=== PATIENT | male | born 1960 | race Two or more races ===

== ENCOUNTER 2020-07-15 20:24 | Inpatient (IN) | payer MEDICARE, OTHER ==
[~2020-07-15] VITALS: Ht 182.9 cm; Wt 82.6 kg
[2020-07-15] MEDS ORDERED: ACETAMINOPHEN/CODEINE 300-30 MG TABLET PO ONE (21:00)
[2020-07-15] MEDS ORDERED: ACETAMINOPHEN/CODEINE 300-30 MG TABLET ONE (21:11)
--- NOTE | 2020-07-15 21:49 | NUR ---
Patient will be going to Room 140. Report Given. COVID -.
[2020-07-15] MEDS ORDERED: CLONIDINE HCL 0.1 MG TABLET ONE (21:59)
[2020-07-15] MEDS ORDERED: CLONIDINE HCL 0.1 MG TABLET PO ONE (22:00)
[2020-07-15 22:30] VITALS: BP 164/111
[2020-07-15 22:45] VITALS: BP 168/93
[2020-07-15] MEDS ORDERED: MAG HYDROX/AL HYDROX/SIMETH 30 ML LIQUID UDC PO PRN (22:45)
[2020-07-15] MEDS ORDERED: CLONAZEPAM 0.5 MG TABLET PO PRN (22:45)
[2020-07-15] MEDS ORDERED: TEMAZEPAM 7.5 MG CAPSULE PO PRN (22:45)
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
[2020-07-15] MEDS: CLONIDINE HCL 0.1 MG TABLET PO PRN (23:45)
[2020-07-16] MEDS: ACETAMINOPHEN 325 MG TABLET PO PRN ×2 (04:41→14:11)
--- NOTE | 2020-07-16 06:09 | NUR ---
Patients b/p on admission, 183/93. Clonidine PRN was given. Recheck of b/p is 137/85. Patient slept 5.30 last night. Woke up anxious early this am. Reassurance provided along with medication for anxiety. Continuing to monitor for paranoia, anxiety, VS and safety. No acute issues at this time.
[2020-07-16 07:25] LABS: BILIRUBIN,TOTAL 0.7 mg/dL (0.2-1.0); CREATININE 1.1 mg/dL (0.6-1.3); POTASSIUM 3.2 mmol/L (3.5-5.1); TOTAL PROTEIN, SERUM 6.1 g/dL (6.4-8.2)
[2020-07-16 07:30] VITALS: BP 150/80
[2020-07-16] MEDS ORDERED: PNEUMOCOCCAL 23-VAL P-SAC VAC 0.5 ML VIAL IM ONE (09:00)
[2020-07-16] MEDS ORDERED: POTASSIUM CHLORIDE 20 MEQ TAB.PRT.SR PO ONE (09:45)
--- NOTE | 2020-07-16 11:11 | NUR ---
NATASHA Initial Discharge Plan: [place] [address] ([phone]). Patient would like a new board and care facility placement. Patient's daughter, Rebecca Bedoya ([phone]) is involved in the patient's care and would like an alternate board and care facility for the patient. NATASHA will continue to work with patient, family, and MD to ensure as safe and proper discharge plan.
--- NOTE | 2020-07-16 11:21 | NUR ---
SW Family Contact: SW spoke with patient's daughter, Rebecca Bedoya ([phone]) who is involved in the patient's care and discussed treatment and discharge plan. Rebecca stated that she does not want the patient to return to his current board and care. SW advised that we can search for an alternate board and care placement for the patient. Rebecca requested for a placement out near her city near [place], [place] and farther out. This SW advised that we do not have resources beyond the [facility] area. Rebecca stated "you are a social media campaign manager it is your job to find him a facility! you cannot throw him on the streets". This SW educated Rebecca that we do not "throw patients on the street". This SW stated again that we can find the patient an alternate placement however it would be in the [place] area. SW informed Rebecca that she is more than welcome to look into placements in her area and this SW will coordinate with them if they can accept the patient. Rebecca states "it is not my job to do that". This SW requested Rebecca to look into placement of her choice over the weekend and this SW will touch bases with her on Sunday for follow up discharge planing discussion. This SW will give Rebecca placement options that are accepting with patient's income.
--- NOTE | 2020-07-16 11:32 | NUR ---
Firearms Report: Industrial Relations Worker completed and submitted a [employer] firearms report for 5150 grave disability certifications. A copy of report has been placed in patient chart.
--- NOTE | 2020-07-16 11:32 | NUR ---
NATASHA Formula Mixer: NATASHA spoke with Glenis ([phone]) key account coordinator for [facility]. NATASHA requested to find a placement for this patient. Glenis will look into it and call this SW with potential placements.
[2020-07-16] MEDS ORDERED: METF-442 PO (13:56)
[2020-07-16] MEDS ORDERED: METF-495 PO (13:56)
--- NOTE | 2020-07-16 14:11 | NUR ---
Pt asked for Tylenol PRN for pain but refused to take it when this nurse offered it at bedside. He said he wanted "Tylenol with codeine" because "regular Tylenol doesn't work". Nurse explained MD order but insisted on his preference and refused said medication.
[2020-07-16 16:27] VITALS: BP 178/104
[2020-07-16] MEDS: CLONIDINE HCL 0.1 MG TABLET PO PRN ×2 (16:46→19:54)
--- NOTE | 2020-07-16 16:46 | NUR ---
Pt's BP reads 170/100. Catapres 0.1mg offered to pt for increased BP. Pt refused, saying he doesn't need it and that he only wants Oxycontin. Teaching re: indication of the medication done, pt still refused.
[2020-07-16] MEDS ORDERED: hydrALAZINE HCL 10 MG TABLET PO PRN (17:15)
--- NOTE | 2020-07-16 18:27 | NUR ---
served a copy of his 5250 hold, patient throw the copy on the floor, patient remain isolative and withdrawn with unpredictable behavior
[2020-07-16] MEDS: HYDROCODONE/APAP 5-325MG TABLET PO PRN (20:18)
[2020-07-16 20:24] VITALS: BP 167/101
[2020-07-16] MEDS: risperiDONE 1 MG TABLET PO SCH (20:55)
[2020-07-16] MEDS: METOPROLOL TARTRATE 25 MG TABLET PO SCH (20:55)
[2020-07-16 21:37] VITALS: BP 137/89
[2020-07-16] MEDS: TEMAZEPAM 15 MG CAPSULE PO PRN (23:01)
--- NOTE | 2020-07-17 06:11 | NUR ---
GPS: Remain calm and cooperative. v/s wnl. slept 7 hrs after sleeping meds given. self care. resting in bed comfortably. continue plan of care.
[2020-07-17 07:30] VITALS: BP 142/85
--- NOTE | 2020-07-17 07:30 | NUR ---
received patient on bed, calm cooperative, denies SI and HI, compliant with medication,on monitoring for q15 for safety no sign of distress .verbalizes of pain, patient asked for his pain medication, pain meds given as ordered will continue monitor
[2020-07-17] MEDS: risperiDONE 1 MG TABLET PO SCH ×2 (08:30→20:23)
[2020-07-17] MEDS: METFORMIN HCL 500 MG TABLET PO SCH ×2 (08:30→16:44)
[2020-07-17] MEDS: LOSARTAN POTASSIUM 25 MG TABLET PO SCH (08:30)
[2020-07-17] MEDS: DIVALPROEX 250 MG TABLET.DR PO SCH ×3 (08:30→16:44)
[2020-07-17] MEDS: METOPROLOL TARTRATE 25 MG TABLET PO SCH ×2 (08:31→20:23)
[2020-07-17] MEDS: HYDROCODONE/APAP 5-325MG TABLET PO PRN ×2 (08:36→17:08)
[2020-07-17] MEDS ORDERED: hydrALAZINE HCL 10 MG TABLET PO PRN (09:00)
[2020-07-17] MEDS: ACETAMINOPHEN 325 MG TABLET PO PRN (12:26)
[2020-07-17 15:59] VITALS: BP 122/71
--- NOTE | 2020-07-17 17:23 | NUR ---
patient been calm, cooperative, patient isolative withdrawn, patient requested for pain medication, on moniotring for q15 no sign of distress
[2020-07-17 20:39] VITALS: BP 143/85
[2020-07-17] MEDS: TEMAZEPAM 15 MG CAPSULE PO PRN (21:25)
--- NOTE | 2020-07-18 05:48 | NUR ---
slept 7.45 hrs through the night.
[2020-07-18 07:04] LABS: BASOPHILS # (AUTO) 0.1 K/uL (0.0-8.0); EOSINOPHILS # (AUTO) 0.2 K/uL (0.0-0.7); EOSINOPHILS % (AUTO) 3.5 % (0.0-7.0); HEMATOCRIT 44.3 % (36.7-47.1); HEMOGLOBIN 14.9 g/dL (12.5-16.3); LYMPHOCYTES # (AUTO) 1.4 K/uL (20.0-40.0); LYMPHOCYTES % (AUTO) 25.1 % (20.5-51.5); MEAN CORPUSCULAR HGB CONC 34 g/dL (32.5-36.3); MEAN CORPUSCULAR VOLUME 98.4 fL (73.0-96.2); MONOCYTES # (AUTO) 0.4 K/uL (2.0-10.0); MONOCYTES % (AUTO) 7.8 % (0.0-11.0); NEUTROPHILS # (AUTO) 3.5 K/uL (1.8-8.9); NEUTROPHILS % (AUTO) 62.6 % (38.5-71.5); PLATELET COUNT (AUTO) 135 K/uL (152-348); RED BLOOD CELL COUNT(AUTO) 4.51 MIL/uL (4.06-5.63); WHITE BLOOD COUNT (AUTO) 5.5 K/uL (3.6-10.2)
[2020-07-18 07:11] LABS: CREATININE 1.1 mg/dL (0.6-1.3); MAGNESIUM 2.1 mg/dL (1.8-2.4); PHOSPHOROUS 3.3 mg/dL (2.5-4.9); POTASSIUM 3.9 mmol/L (3.5-5.1)
[2020-07-18 08:00] VITALS: BP 160/89
[2020-07-18] MEDS: METFORMIN HCL 500 MG TABLET PO SCH ×2 (08:31→16:08)
[2020-07-18] MEDS: HYDROCODONE/APAP 5-325MG TABLET PO PRN ×2 (08:31→15:33)
[2020-07-18] MEDS: DIVALPROEX 250 MG TABLET.DR PO SCH ×3 (08:31→16:08)
[2020-07-18] MEDS: METOPROLOL TARTRATE 25 MG TABLET PO SCH ×2 (08:32→20:20)
[2020-07-18] MEDS: LOSARTAN POTASSIUM 25 MG TABLET PO SCH (08:32)
[2020-07-18] MEDS: risperiDONE 1 MG TABLET PO SCH ×2 (08:32→20:20)
[2020-07-18] MEDS: ACETAMINOPHEN 325 MG TABLET PO PRN (08:32)
[2020-07-18] MEDS: CIPROFLOXACIN 0.3% OPHT DROP 2.5 ML BOTTLE LEFTEYE SCH ×3 (13:15→20:21)
[2020-07-18 16:00] VITALS: BP 148/86
[2020-07-18 20:00] VITALS: BP 155/92
[2020-07-18] MEDS: LORAZEPAM 1 MG TABLET PO PRN (20:21)
[2020-07-19] MEDS: CIPROFLOXACIN 0.3% OPHT DROP 2.5 ML BOTTLE LEFTEYE SCH ×6 (00:03→20:26)
[2020-07-19] MEDS: TEMAZEPAM 15 MG CAPSULE PO PRN (00:20)
--- NOTE | 2020-07-19 06:56 | NUR ---
Received patient last night anxious . Medicated patient as prescribed and noted that patient still has delusional thinking. Patient was only up once during the night to ask for something to help him sleep. Sleep hours were 9.00. Continuing to monitor for safety, elevated blood pressure and labile behavior.
[2020-07-19 07:30] VITALS: BP 162/99
[2020-07-19 08:00] VITALS: BP 162/99
[2020-07-19] MEDS: METFORMIN HCL 500 MG TABLET PO SCH ×2 (08:45→16:30)
[2020-07-19] MEDS: risperiDONE 1 MG TABLET PO SCH ×2 (08:46→20:34)
[2020-07-19] MEDS: DIVALPROEX 250 MG TABLET.DR PO SCH ×3 (08:46→16:30)
[2020-07-19] MEDS: METOPROLOL TARTRATE 25 MG TABLET PO SCH ×2 (08:46→20:25)
[2020-07-19] MEDS: CLONIDINE HCL 0.1 MG TABLET PO PRN (08:46)
[2020-07-19] MEDS: LOSARTAN POTASSIUM 25 MG TABLET PO SCH (08:46)
[2020-07-19 12:53] VITALS: BP 143/78
--- NOTE | 2020-07-19 14:23 | NUR ---
SW Family Contact: SW spoke with patient's daughter, Rebecca Bedoya ([phone]) and discussed discharge planning. Rebecca informed this SW that she was able to visit some [facility] and Care facilities Glenis the lab coordinator this SW refereed her to last week. Rebecca stated she chose a facility of her liking for the patient to go to when ready for discharge.
[2020-07-19 16:00] VITALS: BP 150/88
[2020-07-19] MEDS: HYDROCODONE/APAP 5-325MG TABLET PO PRN (16:30)
[2020-07-19 20:00] VITALS: BP 137/88
[2020-07-19] MEDS: ACETAMINOPHEN 325 MG TABLET PO PRN (20:30)
[2020-07-20] MEDS: HYDROCODONE/APAP 5-325MG TABLET PO PRN ×3 (01:48→19:48)
[2020-07-20] MEDS: CIPROFLOXACIN 0.3% OPHT DROP 2.5 ML BOTTLE LEFTEYE SCH ×7 (01:48→20:04)
[2020-07-20 07:30] VITALS: BP 147/99
[2020-07-20] MEDS: LOSARTAN POTASSIUM 25 MG TABLET PO SCH (08:21)
[2020-07-20] MEDS: DIVALPROEX 250 MG TABLET.DR PO SCH ×3 (08:21→16:50)
[2020-07-20] MEDS: METFORMIN HCL 500 MG TABLET PO SCH ×2 (08:21→16:50)
[2020-07-20] MEDS: risperiDONE 1 MG TABLET PO SCH ×2 (08:21→20:04)
[2020-07-20] MEDS: METOPROLOL TARTRATE 25 MG TABLET PO SCH ×2 (08:22→20:04)
--- NOTE | 2020-07-20 10:31 | NUR ---
NATASHA PC Hearing: Patient had 5250 probable cause hearing today and it was upheld for grave disability.
[2020-07-20] MEDS: LISINOPRIL 5 MG TABLET PO SCH (12:58)
[2020-07-20 16:00] VITALS: BP 159/93
[2020-07-20 20:00] VITALS: BP 166/95
--- NOTE | 2020-07-20 21:20 | NUR ---
GPS: Pt.refused repeat b/p check at this time despite explanation of importance. Denies headaches nor any chest pains at this time. Will continue to monitor.
[2020-07-20] MEDS: TEMAZEPAM 15 MG CAPSULE PO PRN (23:36)
[2020-07-21] MEDS: CIPROFLOXACIN 0.3% OPHT DROP 2.5 ML BOTTLE LEFTEYE SCH ×7 (00:08→23:50)
--- NOTE | 2020-07-21 06:34 | NUR ---
GPS: Pt.slept for 5.30 last night. Atb.eye drops continues Q4 hrs.as ordered. Left eye remains swollen and reddened. Pain meds.given as ordered. Will continue to monitor.
[2020-07-21 07:30] VITALS: BP 155/97
[2020-07-21] MEDS: risperiDONE 1 MG TABLET PO SCH ×2 (09:43→20:33)
[2020-07-21] MEDS: DIVALPROEX 250 MG TABLET.DR PO SCH ×3 (09:43→16:35)
[2020-07-21] MEDS: METFORMIN HCL 500 MG TABLET PO SCH ×2 (09:43→16:35)
[2020-07-21] MEDS: METOPROLOL TARTRATE 25 MG TABLET PO SCH ×2 (09:43→20:33)
[2020-07-21] MEDS: LISINOPRIL 5 MG TABLET PO SCH ×2 (09:44→20:33)
[2020-07-21] MEDS: LOSARTAN POTASSIUM 25 MG TABLET PO SCH (09:44)
[2020-07-21] MEDS: HYDROCODONE/APAP 5-325MG TABLET PO PRN ×2 (10:09→17:43)
[2020-07-21 16:38] VITALS: BP 135/92
[2020-07-21 20:40] VITALS: BP 150/92
[2020-07-21] MEDS: TEMAZEPAM 15 MG CAPSULE PO PRN (22:47)
[2020-07-22] MEDS: CIPROFLOXACIN 0.3% OPHT DROP 2.5 ML BOTTLE LEFTEYE SCH ×6 (04:00→23:52)
[2020-07-22 07:30] VITALS: BP 141/88
[2020-07-22] MEDS: METFORMIN HCL 500 MG TABLET PO SCH ×2 (09:32→17:14)
[2020-07-22] MEDS: LOSARTAN POTASSIUM 25 MG TABLET PO SCH (09:32)
[2020-07-22] MEDS: risperiDONE 1 MG TABLET PO SCH (09:32)
[2020-07-22] MEDS: DIVALPROEX 250 MG TABLET.DR PO SCH ×3 (09:32→17:14)
[2020-07-22] MEDS: METOPROLOL TARTRATE 25 MG TABLET PO SCH ×2 (09:32→20:38)
[2020-07-22] MEDS: LISINOPRIL 5 MG TABLET PO SCH ×2 (09:33→20:39)
[2020-07-22] MEDS: HYDROCODONE/APAP 5-325MG TABLET PO PRN ×3 (09:59→22:22)
[2020-07-22 17:06] VITALS: BP 122/78
[2020-07-22 20:10] VITALS: BP 138/76
[2020-07-22] MEDS: risperiDONE 2 MG TABLET PO SCH (20:44)
[2020-07-22] MEDS ORDERED: risperiDONE 1 MG TABLET PO SCH (21:00)
[2020-07-22] MEDS: TEMAZEPAM 15 MG CAPSULE PO PRN (23:17)
[2020-07-23] MEDS: CIPROFLOXACIN 0.3% OPHT DROP 2.5 ML BOTTLE LEFTEYE SCH ×2 (03:46→08:41)
--- NOTE | 2020-07-23 06:26 | NUR ---
GPS: Remain calm and cooperative. v/s wnl. slept 9 hrs after sleeping meds given. self care. resting in bed comfortably. continue plan of care.
[2020-07-23 07:30] VITALS: BP 150/83
[2020-07-23] MEDS: risperiDONE 2 MG TABLET PO SCH ×2 (08:39→20:32)
[2020-07-23] MEDS: DIVALPROEX 250 MG TABLET.DR PO SCH ×3 (08:39→16:37)
[2020-07-23] MEDS: METOPROLOL TARTRATE 25 MG TABLET PO SCH ×2 (08:39→20:32)
[2020-07-23] MEDS: LISINOPRIL 5 MG TABLET PO SCH ×2 (08:39→20:32)
[2020-07-23] MEDS: METFORMIN HCL 500 MG TABLET PO SCH ×2 (08:40→16:37)
[2020-07-23] MEDS: LOSARTAN POTASSIUM 25 MG TABLET PO SCH (08:40)
[2020-07-23] MEDS: HYDROCODONE/APAP 5-325MG TABLET PO PRN (08:41)
[2020-07-23 16:00] VITALS: BP 131/85
[2020-07-23 20:11] VITALS: BP 135/80
[2020-07-23] MEDS: TEMAZEPAM 15 MG CAPSULE PO PRN (22:15)
--- NOTE | 2020-07-24 06:45 | NUR ---
Patient slept 8.00 hours last night. Up one time asking for a sleeping pill. Patient denied hearing voices, denied SI and no delusions noted. No behavioral issues and frequent rounds done.
[2020-07-24 07:30] VITALS: BP 138/95
[2020-07-24] MEDS: METFORMIN HCL 500 MG TABLET PO SCH ×2 (08:46→16:16)
[2020-07-24] MEDS: DIVALPROEX 250 MG TABLET.DR PO SCH ×3 (08:47→16:16)
[2020-07-24] MEDS: LOSARTAN POTASSIUM 25 MG TABLET PO SCH (08:47)
[2020-07-24] MEDS: METOPROLOL TARTRATE 25 MG TABLET PO SCH ×2 (08:47→20:25)
[2020-07-24] MEDS: risperiDONE 2 MG TABLET PO SCH ×2 (08:47→20:25)
[2020-07-24] MEDS: LISINOPRIL 5 MG TABLET PO SCH ×2 (08:48→20:26)
[2020-07-24] MEDS: HYDROCODONE/APAP 5-325MG TABLET PO PRN ×2 (09:19→16:15)
[2020-07-24 16:00] VITALS: BP 139/77
--- NOTE | 2020-07-24 19:19 | NUR ---
Patient AOx4. no signs of acute distress. Patient complained of pain on left eye. pain medications given as ordered and patient tolerated well. patient stayed in room for most of shift, only ambulating to the bathroom. frequent rounding done for safety. comfort measures given. will endorse to incoming shift for continuity of care.
[2020-07-24 20:25] VITALS: BP 143/76
[2020-07-24] MEDS: MAGNESIUM HYDROXIDE 30 ML LIQUID UDC PO PRN (20:26)
[2020-07-24] MEDS: TEMAZEPAM 15 MG CAPSULE PO PRN (21:58)
[2020-07-24] MEDS: LORAZEPAM 1 MG TABLET PO PRN (23:03)
[2020-07-24] MEDS: ACETAMINOPHEN 325 MG TABLET PO PRN (23:03)
--- NOTE | 2020-07-25 06:07 | NUR ---
Patient slept 6.30 hours. Medicated for sleep per request. Patient is isolative and has minimal interaction with peers or staff. Sales And Merchandising Representative encouraged patient to come out of the room for a while. Patient declined. No significant changes from for the previous assessment.
[2020-07-25 07:30] VITALS: BP 118/82
--- NOTE | 2020-07-25 08:00 | NUR ---
ALERT ORIENTED COOPERATIVE WITH CARE AND COMPLIANT WITH MEDICATIONS STAYED IN THE ROOM MOST OF THE TIME ENCOURAGED TO GET OUT OF HIS ROOM AND INTERACT WITH OTHER PATIENTS AND HE EXPRESSED UNDERSTANDING WILL CONTINUE TO PROVIDE SAFE AND THERAPEUTIC ENVIRONMENT AT ALL TIMES
[2020-07-25] MEDS: METFORMIN HCL 500 MG TABLET PO SCH ×2 (09:05→16:26)
[2020-07-25] MEDS: DIVALPROEX 250 MG TABLET.DR PO SCH ×3 (09:05→16:26)
[2020-07-25] MEDS: LOSARTAN POTASSIUM 25 MG TABLET PO SCH (09:08)
[2020-07-25] MEDS: METOPROLOL TARTRATE 25 MG TABLET PO SCH ×2 (09:08→20:44)
[2020-07-25] MEDS: risperiDONE 2 MG TABLET PO SCH ×2 (09:12→20:44)
[2020-07-25] MEDS: HYDROCODONE/APAP 5-325MG TABLET PO PRN ×2 (09:26→20:43)
[2020-07-25] MEDS: LISINOPRIL 5 MG TABLET PO SCH ×2 (09:26→20:44)
--- NOTE | 2020-07-25 09:26 | NUR ---
STATED HAVING PAIN BOTH IN HER EYE AREA NA D GENERALISED PAIN MEDICATED WITH NORCO ORDERED MADE COMFORTABLE WILL OBSERVE.
[2020-07-25 16:00] VITALS: BP 124/86
--- NOTE | 2020-07-25 18:00 | NUR ---
PRUNE JUICE GIVEN PATIENT STATED HAS NOT HAD A BOWEL MOVEMENT ENCOURAGED TO AMB ULATE MUCH ABLE TO PROMOTE CIRCULATION MA MOVEMENT OF THE BOWEL FLUIDS ENCOURAGED WILL ENDORSE AND CONTINUE TO OBSERVE.
[2020-07-25 20:22] VITALS: BP 140/86
[2020-07-25] MEDS: MAGNESIUM HYDROXIDE 30 ML LIQUID UDC PO PRN (20:43)
[2020-07-25] MEDS: TEMAZEPAM 15 MG CAPSULE PO PRN (22:33)
--- NOTE | 2020-07-26 05:55 | NUR ---
This patient requested pain medication once last night. Slept a total of 7.00 hours. Faith Healer was unable to engage patient in any meaningful conversation and no verbalization of previous delusions were noted. No changes from previous nights assessment and no anxiety observed
[2020-07-26] MEDS: HYDROCODONE/APAP 5-325MG TABLET PO PRN ×3 (06:24→20:01)
[2020-07-26 07:30] VITALS: BP 144/81
[2020-07-26] MEDS: LISINOPRIL 5 MG TABLET PO SCH ×2 (09:15→20:01)
[2020-07-26] MEDS: risperiDONE 2 MG TABLET PO SCH ×2 (09:15→20:00)
[2020-07-26] MEDS: METFORMIN HCL 500 MG TABLET PO SCH ×2 (09:15→17:13)
[2020-07-26] MEDS: LOSARTAN POTASSIUM 25 MG TABLET PO SCH (09:15)
[2020-07-26] MEDS: METOPROLOL TARTRATE 25 MG TABLET PO SCH ×2 (09:17→20:01)
[2020-07-26] MEDS: DIVALPROEX 250 MG TABLET.DR PO SCH ×3 (09:17→17:13)
[2020-07-26 15:39] VITALS: BP 148/94
[2020-07-26 20:30] VITALS: BP 159/89
[2020-07-27] MEDS: TEMAZEPAM 15 MG CAPSULE PO PRN ×2 (00:14→23:36)
[2020-07-27] MEDS: HYDROCODONE/APAP 5-325MG TABLET PO PRN ×2 (05:49→20:52)
[2020-07-27 07:30] VITALS: BP 161/97
[2020-07-27] MEDS: DIVALPROEX 250 MG TABLET.DR PO SCH ×3 (08:09→17:01)
[2020-07-27] MEDS: METFORMIN HCL 500 MG TABLET PO SCH ×2 (08:09→17:01)
[2020-07-27] MEDS: risperiDONE 2 MG TABLET PO SCH ×2 (08:10→20:46)
[2020-07-27] MEDS: CLONIDINE HCL 0.1 MG TABLET PO PRN (08:10)
[2020-07-27] MEDS: LISINOPRIL 5 MG TABLET PO SCH ×2 (08:10→20:46)
[2020-07-27] MEDS: METOPROLOL TARTRATE 25 MG TABLET PO SCH ×2 (08:10→20:47)
[2020-07-27] MEDS: LOSARTAN POTASSIUM 25 MG TABLET PO SCH (08:11)
[2020-07-27 12:50] VITALS: BP 117/72
[2020-07-27 15:38] VITALS: BP 122/75
[2020-07-27 21:53] VITALS: BP 141/91
[2020-07-28 07:30] VITALS: BP 132/85
[2020-07-28] MEDS: METOPROLOL TARTRATE 25 MG TABLET PO SCH ×2 (08:40→20:23)
[2020-07-28] MEDS: DIVALPROEX 250 MG TABLET.DR PO SCH ×3 (08:40→17:59)
[2020-07-28] MEDS: METFORMIN HCL 500 MG TABLET PO SCH ×2 (08:40→17:59)
[2020-07-28] MEDS: risperiDONE 2 MG TABLET PO SCH ×2 (08:40→20:23)
[2020-07-28] MEDS: LISINOPRIL 5 MG TABLET PO SCH ×2 (08:41→20:22)
[2020-07-28] MEDS: LOSARTAN POTASSIUM 25 MG TABLET PO SCH (08:41)
[2020-07-28] MEDS: HYDROCODONE/APAP 5-325MG TABLET PO PRN ×2 (09:23→18:46)
[2020-07-28 16:00] VITALS: BP 127/82
[2020-07-28] MEDS: prednisoLONE ACET 1% OPHT DROP 5 ML BOTTLE LEFTEYE SCH (17:59)
--- NOTE | 2020-07-28 19:26 | NUR ---
Pt was in bed all the shift. Pt declined to go to activities. pt has reported pain in his left eye and headache. Medication was provided. New eye drops were ordered, pt was compliant. No distress noted.
[2020-07-28 20:09] VITALS: BP 119/84
[2020-07-28] MEDS: TRAZODONE 50 MG TABLET PO SCH (20:22)
[2020-07-29] MEDS: HYDROCODONE/APAP 5-325MG TABLET PO PRN ×3 (00:47→20:31)
[2020-07-29 07:30] VITALS: BP 138/78
[2020-07-29] MEDS: prednisoLONE ACET 1% OPHT DROP 5 ML BOTTLE LEFTEYE SCH ×2 (08:26→17:08)
[2020-07-29] MEDS: DIVALPROEX 250 MG TABLET.DR PO SCH ×3 (08:27→17:07)
[2020-07-29] MEDS: LOSARTAN POTASSIUM 25 MG TABLET PO SCH (08:32)
[2020-07-29] MEDS: METFORMIN HCL 500 MG TABLET PO SCH ×2 (08:32→17:07)
[2020-07-29] MEDS: risperiDONE 2 MG TABLET PO SCH ×2 (08:32→20:28)
[2020-07-29] MEDS: LISINOPRIL 5 MG TABLET PO SCH ×2 (08:33→20:29)
[2020-07-29] MEDS: METOPROLOL TARTRATE 25 MG TABLET PO SCH ×2 (08:33→20:30)
[2020-07-29 16:00] VITALS: BP 126/80
[2020-07-29 20:14] VITALS: BP 132/76
[2020-07-29] MEDS: TRAZODONE 50 MG TABLET PO SCH (20:28)
[2020-07-29] MEDS: MAGNESIUM HYDROXIDE 30 ML LIQUID UDC PO PRN (20:28)
--- NOTE | 2020-07-30 06:12 | NUR ---
Patient received in his bed , awake, and asking for pain medications for his swollen left eye. Reception noticed that this patient is very isolative and does not elaborate when asked questions. No delusional thinking noticed or paranoia at this time. Patient slept 7.00 hours. Continuing to monitor patients pain and for any behavioral issues. The plan is for the patient to be discharge today.Safety measures are in place.
[2020-07-30 07:30] VITALS: BP 137/77
[2020-07-30] MEDS: HYDROCODONE/APAP 5-325MG TABLET PO PRN ×2 (07:34→14:34)
[2020-07-30] MEDS: prednisoLONE ACET 1% OPHT DROP 5 ML BOTTLE LEFTEYE SCH (08:12)
--- NOTE | 2020-07-30 08:24 | NUR ---
Discharge Note: Patient will be discharge to [facility] [address] [place] [address], Pee accounts payable administrator ([phone]) accepted the patient. Whitney sales support coordinator ([phone]) will be picking up the patient today at 1pm. Patients daughterRebecca ([phone]) is involved in the patients care. Patient is alert and oriented x4 and is aware and agreeable with discharge plan. Patient denies suicidal or homicidal ideation. Patient presents with euthymic mood and congruent affect. Patient is referred to [facility], [facility]. ( ) [facility] and will be admitted upon arrival home today. Patient will have medication management, shower assistance, physical therapy, and nurse visits several times a week. Patient will be referred for primary care and psychiatry follows ups from the facility upon arrival. Patient is referred to [facility] for outpatient psychiatric services [id number] [place] [address] [address], [place] [address] ([phone]).
[2020-07-30] MEDS: METOPROLOL TARTRATE 25 MG TABLET PO SCH (08:38)
[2020-07-30] MEDS: DIVALPROEX 250 MG TABLET.DR PO SCH ×2 (08:38→12:29)
[2020-07-30] MEDS: METFORMIN HCL 500 MG TABLET PO SCH (08:38)
[2020-07-30] MEDS: risperiDONE 2 MG TABLET PO SCH (08:38)
[2020-07-30] MEDS: LOSARTAN POTASSIUM 25 MG TABLET PO SCH (08:38)
[2020-07-30] MEDS: LISINOPRIL 5 MG TABLET PO SCH (08:38)
--- NOTE | 2020-07-30 12:10 | NUR ---
Gps/Die Engraving Supervisor- Reviewed discharged instructions , safety e,phasized, reviewed medications and prescriptions, dieta, skin care , pain management , verbalized understanding. patient only have white ring for valuable. Patient was well informed of his discharged plan.
[2020-07-30 15:00] VITALS: BP 134/66
--- NOTE | 2020-07-30 15:09 | NUR ---
PT LEFT UNIT ACCOMPANIED BY BUSINESS CONTINUITY ANALYST TO FRONT LOBBY TO MEET WITH CAREGIVER TO PROVIDE TRANSPORTATION TO [facility]. LEFT WITH ALL NOTED BELONGINGS AND PAPERWORK. NURSE ADMINISTERED NORCO ORDERED FOR LEFT EYE PAIN. V/S STABLE. IN NO ACUTE DISTRESS.
== END 2020-07-30 15:15 | disposition home health service (06) | DRG 885 ==
LOC: ER 20:27 → GPS 21:53
PROVIDERS: ADMIT Psychiatry & Neurology Psychiatry; ATTEND Hospitalist
DX: F25.9 Schizoaffective disorder, unspecified (principal); H10.402 Unspecified chronic conjunctivitis, left eye; I10 Essential (primary) hypertension; E87.6 Hypokalemia; Z79.84 Long term (current) use of oral hypoglycemic drugs; F29 Unspecified psychosis not due to a substance or known physiological condition; E11.9 Type 2 diabetes mellitus without complications; R79.89 Other specified abnormal findings of blood chemistry; Z20.822 Contact with and (suspected) exposure to COVID-19; Z73.6 Limitation of activities due to disability
CPT/HCPCS: 36415; 71045; 83735; 84100; 85025; 90732; 93005; A4663; J2650; J3490